=== PATIENT | female | born 1975 | race Caucasian/White ===

== ENCOUNTER 2017-12-23 22:56 | Emergency (ER) | payer OTHER, SELFPAY ==
[2017-12-23 22:56] VITALS: BP 145/89; PULSE 73; RESP 16; TEMP 36.6; O2SAT 100; BMI 26.9
[2017-12-23 23:10] VITALS: BP 138/97; PULSE 66; RESP 14; O2SAT 99
--- NOTE | 2017-12-23 23:14 | RAD_ITS ---
STUDY: X-RAY - RIGHT KNEE REASON FOR EXAM: Female, 42 years old. Knee pain. TECHNIQUE: 4 view(s) of the knee. COMPARISON: None. FINDINGS: Probable 2 cm enchondroma in the distal femoral shaft, otherwise normal visualized distal femur. Normal visualized proximal tibia and fibula. Normal proximal tibiofibular articulation. There is no demonstrated fracture. Normal medial femorotibial compartment. Normal lateral femorotibial compartment. Normal patellofemoral articulation. There is no demonstrated joint effusion. The soft tissue structures are unremarkable. RAD/Knee 4 or More Views IMPRESSION: Normal x-ray examination of the knee. Electronically Signed: Fernando Ponce MD at 23:34 EDT , Service support ,
--- NOTE | 2017-12-23 23:16 | ED.VISSUMM ---
- ER Visit Summary Date of Service: 12/23/17 Chief Complaint: [] Right knee pain History of Present Illness: The patient is a 42 F [] complaining of right knee pain for 2 months with worsening pain in the last several hours. Patient denies injury. Reports mild relief with NSAIDs. is at the bedside. Patient reports mild pain with ambulation. Denies fever or rash. Denies PE risk factors. Denies pain in the calf. Physical Examination: [] Afebrile, vital signs stable. Examination of the right knee reveals negative anterior/posterior drawer sign. Negative pain with varus and valgus stress. There is discomfort with full extension and full flexion and the medial aspect of the knee. There is no significant crepitus, cellulitis, rash, warmth. Neurovascularly intact distally to the affected extremity. Remainder of exam is unremarkable. Test Results: [] 4 view knee x-rays: Negative. Emergency Department Course and Treatment: [] Patient given 1 oxycodone tablet for analgesia. Her will drive her home. X-rays were negative. She was encouraged to follow-up with her primary care physician for outpatient MRI. Treatment Plan: [] Follow-up with PCP. Disposition: [] Discharge, stable. Impression: [] Right knee pain This note was generated with [employer] dictation software. It may contain incorrect words, spelling, and punctuation that were not noted in review of the chart prior to signing ED Disposition - Plan for ED Patient: Chief Complaint: Lower Extremity Injury Referrals: Maryjo Enamorado MD [Primary Care Provider] -
--- NOTE | 2017-12-23 23:53 | ED.DEP ---
ED Disposition - Plan for ED Patient: Disposition: Home or Assisted Living Chief Complaint: Lower Extremity Injury Instructions: ED Knee Pain [facility] Prescriptions: Naproxen 500 mg PO BID PRN PRN #20 tablet.dr PRNorma Reason: Pain Referrals: Maryjo Enamorado MD [Primary Care Provider] -
[2017-12-24] MEDS: oxyCODONE 5 MG Tablet PO (00:02)
--- NOTE | 2017-12-24 00:17 | ED.RN ---
DISCHARGE INSTRUCTIONS GIVEN TO AND REVIEWED WITH PATIENT, PATIENT DENIES QUESTIONS OR CONCERNS AND VOICES UNDERSTANDING OF DISCHARGE INSTRUCTIONS. PT AMBULATES OUT OF ROOM WITHOUT DIFFICULTY.
== END 2017-12-24 00:17 | disposition home or self-care (01) ==
PROVIDERS: Emergency Provider Emergency Medicine; Family Provider Internal Medicine; PCP Internal Medicine
DX: M25.561 Pain in right knee (principal)
CPT/HCPCS: 73564; 99282

== ENCOUNTER 2021-06-21 17:05 | Emergency (ER) | payer OTHER, SELFPAY ==
[2021-06-21 17:06] VITALS: BP 139/87; PULSE 85; RESP 18; TEMP 37.4; O2SAT 97; BMI 28.3
[2021-06-21] MEDS: Lidocaine 1% (20 ml mdv) 20 ML Vial INFILT (19:45)
--- NOTE | 2021-06-21 20:00 | EX.ED.DYSGE1 ---
HPI History of Present Illness Chief Complaint: Laceration Informant: patient Onset/Context/Timing Onset: Today Context: Sudden Onset Location: L hand web between 4 and 5 digits Current Severity: Mild Maximum Severity: Mild Worsened by: nothing Relieved by: nothing Associated Symptoms Associated Symptoms: none Narrative Narrative: Cut on chipped glass, prior to arrival. No foreign bodies. No thinners. No other symptoms. Prior similar symptoms: No Recent Illness/Hospitalization: No PFSH PFSH Allergy/AdvReac Type Severity Reaction Status Date / Time No Known Allergies Allergy Verified 06/21/21 17:08 Surgical History History of History of knee surgery Social History Smoking Status: Never smoker ROS ROS ED Constitutional Constitutional ED: Denies chills or fever(s) Eyes Eyes: Denies change in vision ENT ENT ED: Denies ear pain Cardiovascular Cardiovascular: Denies chest pain Respiratory/Chest Respiratory/Chest: Denies dyspnea Gastrointestinal Gastrointestinal: Denies abdominal pain Genitourinary Genitourinary ED: Denies dysuria Musculoskeletal Musculoskeletal: Denies myalgias Integumentary Reports abscess; Denies Abrasions or rash Neurologic Neurologic: Denies weakness Psychiatric Psychiatric: Denies depression Endocrine Endocrinology: Denies polyuria Allergic/Immunologic Allergic/Immunologic ED: Denies urticaria EXAM Physical Exam Const Vital Signs: 06/21/21 17:06 Temperature 99.3 F H Temperature Source Temporal Pulse Rate 85 Respiratory Rate 18 Blood Pressure 139/87 H Blood Pressure Mean 104 Pulse Ox 97 Oxygen Delivery Method Room Air Positive well nourished and well developed General Appearance ED: well developed HEENT Negative for trauma or tenderness Eyes EOMs intact bilaterally Neck supple Extremity Negative for normal to inspection Extremity Narrative: 1 cm lac L hand between 4 and 5 digits web space Neuro oriented x3 and no sensory deficits noted Sensorium / Orientation: alert Motor Exam: strength 5/5 throughout Psych mental status grossly normal Skin Skin Narrative: 1 cm lac as above MDM MDM MDM Narrative Medical decision making narrative: Tetanus updated. Wound was irrigated copiously with saline and Shur-Clens. Explored. No foreign bodies. No deep structures involved. 1 cm full-thickness laceration was repaired with 2 simple interrupted sutures, 5-0 Ethilon. Patient was given wound care instructions and will be discharged. Follow-up as an outpatient in 10 to 14 days or return right away if worse. Impression #1 left hand laceration 1 cm Discharge Plan Triage Chief Complaint: Laceration ED Provider: David Plasencia Dx/Rx/DC Orders Clinical Impression: Laceration of finger Instructions: ED Laceration, Hand: All Closures Primary Care Provider: Maryjo Enamorado Referrals: Maryjo Enamorado MD [Primary Care Provider] - Activity Restrictions/Additional Instructions: Follow up in 10-14 days for suture removal. Return to ER right away if signs of infection develop. Disposition Disposition: Home, Self Care
[2021-06-21] MEDS: Diphth,Pertuss(Acell),Tet Vac 0.5 ML Vial IM (20:03)
== END 2021-06-21 20:14 | disposition home or self-care (01) ==
PROVIDERS: Emergency Provider Emergency Medicine; PCP Internal Medicine
DX: S61.412A Laceration without foreign body of left hand, initial encounter (principal); Z23 Encounter for immunization; W25.XXXA Contact with sharp glass, initial encounter; Y93.9 Activity, unspecified; Y92.9 Unspecified place or not applicable; Y99.9 Unspecified external cause status
CPT/HCPCS: 12001; 90471; 90715; 99282

== ENCOUNTER 2021-11-22 18:13 | Emergency (ER) | payer OTHER, SELFPAY ==
[2021-11-22 18:13] VITALS: BP 164/97; PULSE 77; RESP 16; TEMP 36.6; O2SAT 100; BMI 28.3
--- NOTE | 2021-11-22 18:54 | EDS_ITS ---
HPI History of Present Illness Chief Complaint: Headache Informant: patient Onset/Context/Timing Onset: Days Context: Gradual Timing: Continuous Quality -Headache: Positive for Sharp; Negative for Similar Prior Headaches Current Severity: Moderate Maximum Severity: Moderate Associated Symptoms/Injury Associated Symptoms: Positive for Nausea; Negative for Fever, Vomiting, Sore Throat, Sinus Pressure, Numbness, Tingling, Preceding Aura, Visual Changes, Blurred Vision, Photophobia and Visual Loss Injury - GENTILE: Negative for Direct Trauma, Fall and Assault Narrative Narrative: 46-year-old female no sniffing past medical history. No history of migraines or frequent headaches. Complaining of posterior occipital headache that began on . Gradual in onset. Said involves the base of her skull in her neck. Denies any falls injury or trauma. No fever. No neurological symptoms. No weakness, numbness or visual changes. No trouble with her balance. States she has never had headache like this with the severe. Says when she takes Tylenol relieves it but never goes away and then comes back and is worse. There is no family history of intracranial bleeds or brain aneurysms. She denies any other symptoms. Prior similar symptoms: No Recent Illness/Hospitalization: No PFSH PFSH Medical History no medical history no medical history Home Medications diazepam [Valium] 5 mg PO BID PRN 5 Days #10 tab 11/22/21 [Rx Last Taken Unknown] Allergy/AdvReac Type Severity Reaction Status Date / Time No Known Allergies Allergy Verified 06/21/21 17:08 Surgical History History of History of knee surgery Social History Smoking Status: Never smoker ROS ROS ED ROS Narrative Headache. Nausea. Review of Systems ROS Unobtainable: Denies due to encephalopathy Constitutional Constitutional ED: Denies fever(s) Eyes Eyes: Denies change in vision ENT ENT ED: Denies ear pain Cardiovascular Cardiovascular: Denies chest pain Respiratory/Chest Respiratory/Chest: Denies dyspnea Gastrointestinal Gastrointestinal: Reports nausea; Denies abdominal pain, diarrhea or vomiting Genitourinary Genitourinary ED: Denies dysuria or hematuria Musculoskeletal Musculoskeletal: Denies myalgias Integumentary Denies rash Neurologic Neurologic: Reports headache(s) Psychiatric Psychiatric: Denies depression Endocrine Endocrinology: Denies polyuria Hematologic/Lymphatic Hematologic/Lymphatic: Denies easy bruising Allergic/Immunologic Allergic/Immunologic ED: Denies urticaria EXAM Physical Exam Narrative Exam Narrative: 46-year-old female no acute distress vital signs stable afebrile. Initial blood pressure elevated 164/97. She does look septic or toxic. H EENT exam pupils round reactive light. No facial droop. Normal speech. No signs of trauma to her face or head. Neck she has posterior occipital tenderness to her neck she has full flexion-extension. No meningismus. No lymphadenopathy. Full rotation. Lungs are clear. Heart regular rhythm no murmur. Abdomen soft nontender. Patient moving all 4 extremities. 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 Dorsi plantar flexion intact. Fingertip to nose [id number] within normal limits normal neurologic exam. NIH 0. Const Vital Signs: 11/22/21 18:13 11/22/21 22:21 Temperature 97.8 F Temperature Source Temporal Pulse Rate 77 82 Respiratory Rate 16 16 Blood Pressure 164/97 H 116/78 Blood Pressure Mean 119 90 Pulse Ox 100 99 Oxygen Delivery Method Room Air Room Air Positive well nourished and well developed; Negative for obese, cachectic, contractures or unkempt General Appearance ED: well developed and NAD; Negative for unkempt, cachectic, contractures, cyanotic, diaphoretic or pallor Nutritional Appearance: Negative for cachectic or obese HEENT Reports normocephalic and moist mucous membranes; Denies dry mucous membranes atraumatic; Negative for trauma, tenderness, temporal artery tenderness or vesicular rash Face and Sinus: Negative for sinus tenderness Mouth ED: No dry mucous membranes Mouth: No dry mucous membranes Eyes PERRL and EOMs intact bilaterally General Eye ED: Negative for pale conjunctiva or scleral icterus Neck no lymphadenopathy, supple, no meningeal signs and no JVD General: Negative for tenderness Resp normal respiratory effort and clear to auscultation bilaterally Auscultation: Negative for rales, rhonchi, wheezes or diminished lung sounds Cardio regular rate, regular rhythm, S1 normal heart sound, S2 normal heart sound and no murmurs GI non-tender and non-distended Auscultation: normoactive bowel sounds Palpation: soft; Negative for firm, tender, guarding or rigid Back/Spine no CVA tenderness General Back: Negative for CVA tenderness or tenderness Extremity normal to inspection and full ROM; Negative for normal capillary refill General Extremety ED: Negative for edema or tenderness General Extremity: Negative for edema Neuro oriented x3, CN's II-XII intact bilaterally and no sensory deficits noted Sensorium / Orientation: awake, alert, oriented to person, oriented to place, oriented to time and orientation impaired; Negative for lethargic or stuporous Coordination / Balance: [id number] test normal and [id number] test normal Speech: speech normal Motor Exam: strength 5/5 throughout Psych mental status grossly normal Appearance: Negative for unkempt Attitude: No agitated Mood & Affect: Negative for depressed or tearful Skin General Skin Exam: Negative for jaundice or pallor Lesions: no lesions Rashes: no rashes MDM MDM MDM Narrative Medical decision making narrative: 46-year-old female with posterior occipital headache. Typically does not get severe headaches. Very well may be a tension headache. CT will be obtained. I will also be treated with IM Toradol and p.o. Valium. Repeat exam patient is doing well at 10:55 PM. Neurologic exam remains normal. We went over CAT scan results. Clinically she is feeling much improved after the p.o. Valium and Toradol. Her neurologic exam remains normal. The muscle spasm in her neck peers be improving. She will be discharged home. Radiography Diagnostic Testing: Clinical Impression(s) from Imaging Studies Brain CT 11/22/21 19:15 IMPRESSION: 1. Age-appropriate CT examination of the head. 2. No intracranial mass, hemorrhage or acute territorial infarct. 3. No radiographically significant disease. Electronically Signed: Stone Thakkar MD at 19:59 EST , Discharge Plan Triage Chief Complaint: Headache ED Provider: Rashaad Espinosa Dx/Rx/DC Orders Clinical Impression: Acute tension headache, Muscle spasms of neck Instructions: ED Headache, Tension, ED Muscle Spasm Prescriptions: New diazepam [Valium] 5 mg tablet 5 mg PO BID PRN (Reason: muscle spasm) 5 Days Qty: 10 RF: 0 Primary Care Provider: Maryjo Enamorado Referrals: Maryjo Enamorado MD [Primary Care Provider] - As Needed Activity Restrictions/Additional Instructions: Hot shower, warm bath and massage. The CAT scan was unremarkable. Most likely this is a tension headache with muscle spasms in your neck. Motrin for pain and inflammation. Tylenol for pain. The Valium for relaxation of muscle spasms in your neck. Do not use alcohol or drive while using the Valium. It may make you sleepy. Disposition Disposition: Home, Self Care
--- NOTE | 2021-11-22 19:15 | CT_ITS ---
INDICATION: posterior headache EXAMINATION: CT BRAIN - CT Head or Brain W/O Contrast Injection TECHNIQUE: Multiple axial images were obtained of the head without intravenous contrast. A radiation dose optimization technique was used for this scan. IV Contrast dosage and agent: None. COMPARISON: No previous for comparison FINDINGS: HEMISPHERES: 1. The cerebral parenchyma, ventricular system, subarachnoid spaces have normal configuration and density. There is a normal gyral pattern. There is normal pedraza/white differentiation. No midline shift.. 2. The hemispheric white matter has normal appearance. 3. No intraparenchymal mass, hemorrhage, or acute territorial infarct. CEREBELLUM - BRAINSTEM: The cerebellum, brainstem, basilar and suprasellar cisterns have normal appearance. No Chiari malformation. PITUITARY: Infundibulum and pituitary have normal configuration. Midline structures appear normal. CSF SPACES: Appropriate for age. No hydrocephalus. Basal cisterns are patent. VESSELS: 1. No significant vascular calcifications in the cavernous carotid vessels. 2. No hyperdense vascular signs noted.. ORBITS AND PARANASAL SINUSES: 1. Normal appearance of the bony orbits. Normal appearance of the globes and retrobulbar soft tissues.. 2. Paranasal sinuses are clear. BONY ELEMENTS: Bony elements of the cranial vault, facial skeleton and skull base have normal appearance. SCALP AND SOFT TISSUES: Normal appearance of the soft tissues of the scalp and the visualized face OTHER: None ASPECTS Score for Acute Strokes: 10 CT/Brain/Head without Contrast IMPRESSION: 1. Age-appropriate CT examination of the head. 2. No intracranial mass, hemorrhage or acute territorial infarct. 3. No radiographically significant disease. Electronically Signed: Stone Thakkar MD at 19:59 EST ,
[2021-11-22] MEDS: diazePAM 5 MG Tablet PO (19:20)
[2021-11-22] MEDS: Ketorolac 60 MG/2 ML Vial IM (19:20)
[2021-11-22 22:21] VITALS: BP 116/78; PULSE 82; RESP 16; O2SAT 99
== END 2021-11-22 23:15 | disposition home or self-care (01) ==
PROVIDERS: Emergency Provider Emergency Medicine; PCP Internal Medicine; Visit Provider Emergency Medicine
DX: G44.209 Tension-type headache, unspecified, not intractable (principal); M62.838 Other muscle spasm
CPT/HCPCS: 70450; 96372; 99283

== ENCOUNTER 2022-01-07 09:22 | Outpatient (CLI) | payer OTHER, SELFPAY ==
[2022-01-07 10:01] LABS: Hematocrit 37.5 % (37-47); Hemoglobin 11.8 g/dL (12.0-15.0); Mean Corp Hgb Conc 31.5 g/dL (32-36); Mean Corpuscular Volume 89.1 fL (81-99); Mean Platelet Vol. 9.9 fl (6.2-12.0); Platelet Count 203 K/mm3 (150-450); RBC Distribution Width CV 13.4 % (11.6-14.6); RBC Distribution Width SD 43.7 fl (35.1-43.9); Red Blood Count 4.21 M/mm3 (4.2-5.4); White Blood Count 4.9 K/mm3 (4.4-11.0)
[2022-01-07 10:19] LABS: Hemoglobin A1c 5.1 % (3.8-5.6)
[2022-01-07 10:21] LABS: Cholesterol 172 mg/dL (200); Follicle Stimulating Hormone 119.2 mIU/mL; High Density Lipoprotein 85 mg/dL; Luteinizing Hormone 51.1 mIU/mL; T4 Free Direct 0.88 ng/dL (0.76-1.46); Thyroid Stim Hormone (TSH) 0.98 uIU/mL (0.358-3.74); Triglycerides 110 mg/dL; Very Low Density Lipoprotein 22 mg/dL (5-40)
[2022-01-14 18:10] LABS: HPV APTIMA, High Risk Negative (Negative)
== END 2022-01-07 23:59 | disposition home or self-care (01) ==
LOC: WOBLAB 09:23
PROVIDERS: PCP Internal Medicine; Visit Provider Obstetrics & Gynecology
DX: N93.9 Abnormal uterine and vaginal bleeding, unspecified (principal)
CPT/HCPCS: 36415; 80061; 82670; 83001; 83002; 83036; 84439; 84443; 85027; 87624; 88175; G0145

== ENCOUNTER 2023-08-10 11:56 | Emergency (ER) | payer OTHER, SELFPAY ==
[2023-08-10 11:57] VITALS: BP 152/115; PULSE 83; RESP 15; TEMP 36.3; O2SAT 100; BMI 27.9
--- NOTE | 2023-08-10 12:03 | EKG12_ITS ---
Test Reason : SOB Blood Pressure : / mmHG Vent. Rate : 075 BPM Atrial Rate : 075 BPM P-R Int : 136 ms QRS Dur : 082 ms QT Int : 370 ms P-R-T Axes : 057 073 059 degrees QTc Int : 413 ms Sinus rhythm with Premature atrial complexes Otherwise normal ECG Confirmed by MAYO MARTÍNEZ, AIDE ([id number]), video news editor ABBE ZACARIAS ([id number]) on 08/16/2023 11:55:30 AM Referred By: Confirmed By:AIDE HUBER MD
--- NOTE | 2023-08-10 13:19 | ED.VIS.DYS ---
HPI History of Present Illness Chief Complaint: Shortness of Breath Narrative Narrative: 48-year-old female who denies significant past medical history presents from urgent care with chest tightness and pressure that she has had for a week. She describes URI type symptoms including cough and shortness of breath with nasal congestion and runny nose. No current fevers or chills. She denies any DVT or PE risk factors. No coronary artery disease risk factors. [facility] Medical History Acute sinusitis, unspecified no medical history Home Medications albuterol sulfate 90 mcg/actuation aerosol inhaler (Ventolin HFA) 1 - 2 puff inhalation Q4H PRN PRN Wheezing #1 ea 08/10/23 [Rx Last Taken Unknown] prednisone 20 mg tablet 40 mg (2 x 20 mg) PO DAILY 7 days #14 tabs 08/10/23 [Rx Last Taken Unknown] Allergy/AdvReac Type Severity Reaction Status Date / Time No Known Allergies Allergy Verified 06/21/21 17:08 Surgical History History of History of knee surgery Social History Smoking Status: Never smoker ROS ROS ED ROS Narrative Constitutional: No fever, no chills. HEENT: No sore throat. No neck pain. No loss of vision. No rhinorrhea. Cardiovascular: Chest tightness chest pain. No palpitations. No pedal edema. Respiratory: Positive cough, positive shortness of breath. Abdominal: No abdominal pain. No nausea. No vomiting. Genitourinary: No dysuria. No hematuria. Musculoskeletal: No myalgias. No arthralgias. Neurologic: No headaches. No dizziness. No lightheadedness. Skin: No rash. No change in color. Psychiatric: No depression. No anxiety. EXAM Physical Exam Narrative Exam Narrative: Afebrile. Vital signs noted. HEENT: Normocephalic. Atraumatic. PERRL, EOMI. Neck soft and supple. No point tenderness or step off. Cardiovascular: Regular rate and rhythm. No murmurs, rubs, or gallops appreciated. Respiratory: No tachypnea. Lungs clear to auscultation bilaterally. No wheezing or stridor. Gastrointestinal: Abdomen soft, nontender, with normoactive bowel sounds. No rebound or guarding. Neurological: Awake. Alert. Nonfocal, nonlateralizing. Skin: No rash. Normal color. No pallor. Musculoskeletal: No pedal edema. Full range of motion extremities. Const Vital Signs: 08/10/23 11:57 08/10/23 12:07 08/10/23 13:37 Temperature 97.4 F L Temperature Source Temporal Pulse Rate 83 67 Respiratory Rate 15 12 Respiratory Effort Normal Non-Labored Respiratory Depth Normal Respiratory Pattern Normal Normal Blood Pressure 152/115 H Blood Pressure Mean 127 Pulse Ox 100 Oxygen Delivery Method Room Air Room Air MDM MDM MDM Narrative Medical decision making narrative: Given the patient's URI type symptoms I feel she probably has more of a bronchitis versus pneumonia. I have low concern for acute coronary syndrome or pulmonary embolism. Her pulse ox is 100% on room air and she denies any DVT or PE risk factors. She is PERC negative. I do not feel she needs laboratory work to rule out PE and I do not feel that she needs a CTA of the chest. Additionally, I do not feel that her chest tightness for a week is cardiac pain. I discussed obtaining a single troponin with her and she agrees that this does not feel like cardiac pain and its more related to her upper respiratory infection which could be more viral. EKG was obtained which demonstrates normal sinus rhythm at 75 bpm with PACs but no acute ST changes. No STEMI. She will be given an albuterol aerosolized treatment and chest x-ray in 2 views will be obtained to rule out pneumonia or pneumothorax. 2 view chest x-ray interpreted by myself independently shows no evidence of pneumonia or pneumothorax. I reviewed the radiology report which confirms my independent interpretation. Upon repeat examination at approximately 1420, she states her breathing has improved slightly with the aerosolized treatment. I do feel she has more of a bronchitis and that antibiotics are not indicated. However, she will be written prescriptions for an albuterol inhaler and a prednisone burst of 40 mg for the next 7 days. I feel she be discharged safely home with follow-up. Return instructions to the emergency department were reviewed. Disposition is discharged home in stable condition. Radiography Diagnostic Testing: Clinical Impression(s) from Imaging Studies Chest X-Ray 08/10/23 13:20 IMPRESSION: Normal x-ray examination of the chest. Electronically Signed: Riley Au MD at 13:45 EST , Discharge Plan Triage Chief Complaint: Shortness of Breath ED Provider: Lloyd Sweeney Dx/Rx/DC Orders Clinical Impression: Dyspnea, Bronchitis Instructions: ED Bronchitis, No Antibiotic (Adult), ED Dyspnea Prescriptions: New albuterol sulfate [Ventolin HFA] 90 mcg/actuation HFA aerosol inhaler 1 - 2 puff inhalation Q4H PRN PRN (Reason: Wheezing) Qty: 1 0RF prednisone 20 mg tablet 40 mg PO DAILY 7 Days Qty: 14 0RF Primary Care Provider: Maryjo Enamorado Referrals: Maryjo Enamorado MD [Primary Care Provider] - 1 Week if not improving Disposition Disposition: Home, Self Care
--- NOTE | 2023-08-10 13:20 | RAD_ITS ---
STUDY: X-RAY CHEST REASON FOR EXAM: Female, 48 years old. Shortness of breath TECHNIQUE: PA and lateral views of the chest. COMPARISON: None. FINDINGS: EKG electrodes are seen. Calcified granulomas in the left lower lobe. The lungs are clear. There is no demonstrated pleural abnormality. Normal size heart. Normal mediastinum and oumou. Normal visualized pulmonary arteries. Normal visualized aortic arch and descending thoracic aorta. Normal visualized thoracic spine. Normal visualized ribs, clavicles, and shoulders. There is no demonstrated abnormality of the visualized soft tissue structures of the upper abdomen. RAD/Chest PA and Lateral IMPRESSION: Normal x-ray examination of the chest. Electronically Signed: Riley Au MD at 13:45 EST ,
[2023-08-10 13:37] VITALS: PULSE 67; RESP 12
[2023-08-10] MEDS: Albuterol 2.5 MG/3 ML VIAL.NEB. INHALATION (13:39)
== END 2023-08-10 14:34 | disposition home or self-care (01) ==
PROVIDERS: Emergency Provider Emergency Medicine; PCP Internal Medicine; Visit Provider Emergency Medicine
DX: J40 Bronchitis, not specified as acute or chronic (principal)
CPT/HCPCS: 71046; 93005; 94640; 99282

== ENCOUNTER 2024-12-14 18:39 | Emergency (ER) | payer BC, SELFPAY ==
[2024-12-14 18:39] VITALS: BP 139/93; PULSE 69; RESP 14; TEMP 36.2; O2SAT 100; BMI 30.3
--- NOTE | 2024-12-14 18:48 | RAD_ITS ---
PROCEDURE: HAND MIN 3 VIEWS 12/14/2024 REASON FOR EXAM: INJURY TECHNIQUE: Three-view right hand none FINDINGS: Soft tissue swelling over the 3rd digit. No fracture or foreign body. No dislocation RAD/Hand Min 3 Views IMPRESSION: No acute osseous abnormality Reading Location: [id number]
--- NOTE | 2024-12-14 18:48 | EX.ED.UPPERE ---
HPI History of Present Illness Chief Complaint: Upper Extremity Injury Detail of Chief Complaint: Right hand injury Informant: patient Narrative Narrative: Patient presents to the emergency department with complaint of injury to her right hand. Patient states that she was walking her dog about an hour ago when he started to run while on a leash. The leash then twisted in her hand she fell forward. She injured her right hand. Dog weighs 77 pounds. She is up-to-date on tetanus. She denies any other injuries. [facility] Medical History Acute sinusitis, unspecified Home Medications ?Medication ?Instructions ?Recorded ?Last Taken ?Type albuterol sulfate 90 mcg/actuation 1 - 2 puff inhalation Q4H PRN PRN 08/10/23 Unknown Rx aerosol inhaler (Ventolin HFA) Wheezing #1 ea Allergy/AdvReac Type Severity Reaction Status Date / Time No Known Allergies Allergy Verified 12/14/24 18:40 Surgical History History of History of knee surgery Social History Smoking Status: Never smoker ROS ROS ED Review of Systems ROS Unobtainable: other Constitutional Constitutional ED: Reports lethargy; Denies chills, fever(s), sweats or weight loss Eyes Eyes: Denies blurry vision, change in vision or diplopia ENT ENT ED: Denies rhinorrhea or sore throat Cardiovascular Cardiovascular: Denies chest pain, orthopnea or racing heartbeat Respiratory/Chest Respiratory/Chest: Denies cough, dyspnea, dyspnea on exertion, orthopnea or sputum Gastrointestinal Gastrointestinal: Denies abdominal pain, diarrhea, nausea or vomiting Genitourinary Genitourinary ED: Denies dysuria, hematuria or urinary frequency Musculoskeletal Musculoskeletal: Reports other Details: Right hand pain/injury ; Denies arthralgias, back pain, myalgias or neck pain Integumentary Denies abscess, Abrasions or rash Neurologic Neurologic: Denies headache(s) or weakness Psychiatric Psychiatric: Denies anxiety, depression or suicidal thoughts Endocrine Endocrinology: Denies polydipsia, polyphagia or polyuria Hematologic/Lymphatic Hematologic/Lymphatic: Denies easy bleeding, easy bruising or lymphadenopathy Allergic/Immunologic Allergic/Immunologic ED: Denies mouth swelling, tongue swelling or urticaria EXAM Physical Exam Const Vital Signs: 12/14/24 18:39 Temperature 97.1 F L Temperature Source Temporal Pulse Rate 69 Respiratory Rate 14 Blood Pressure 139/93 H Blood Pressure Mean 108 Pulse Ox 100 Oxygen Delivery Method Room Air Positive well nourished and well developed General Appearance ED: well developed and NAD HEENT Reports TM's clear and moist mucous membranes normocephalic and atraumatic; Negative for trauma or tenderness Tympanic Membrane ED: Yes TM's clear Eyes PERRL and EOMs intact bilaterally General Eye ED: Negative for pale conjunctiva or scleral icterus Neck no lymphadenopathy, supple and no JVD General: Negative for tenderness Chest Wall inspection of chest normal and palpation of chest normal Chest: Negative for tenderness Resp normal respiratory effort and clear to auscultation bilaterally Effort and Inspection: Negative for respiratory distress or pain with movement Auscultation: Negative for rhonchi, wheezes or diminished lung sounds Cardio regular rate, regular rhythm, S1 normal heart sound, S2 normal heart sound and no murmurs Peripheral Pulses: pulses 2+ throughout GI normal to inspection, nondistended, normoactive bowel sounds, soft to palpation, non-tender, non-distended and no masses Back/Spine no CVA tenderness and no thoracic nor lumbar tenderness Extremity Extremity Narrative: Right hand-patient has tenderness and swelling as well as ecchymosis and bruising to the right middle finger mostly over the middle phalanx. Pain with range of motion in flexion extension but no obvious deformity. Patient also has a superficial skin flap/laceration of the ring finger volar aspect middle phalanx. No active bleeding. No bony tenderness on exam. Neurovascularly intact. No tenderness to the wrist General Extremety ED: Negative for edema General Extremity: Negative for edema Neuro oriented x3, CN's II-XII intact bilaterally, no sensory deficits noted and gait normal Sensorium / Orientation: awake, alert, oriented to person, oriented to place and oriented to time Motor Exam: strength 5/5 throughout and strength abnormal Psych mental status grossly normal Skin no rashes or lesions noted and no wounds MDM MDM MDM Narrative Medical decision making narrative: Patient presents with a right hand injury. X-rays of the right hand obtained interpreted by myself as no evidence of fracture or dislocation. Patient will have a clean dressing applied to her finger and given an aluminum splint to the middle finger. Advised to follow-up with primary care physician within next 5 to 7 days. Radiography Diagnostic Testing: Three-view x-rays of the right hand obtained interpreted by myself as no evidence of fracture or dislocation Discharge Plan Triage Chief Complaint: Upper Extremity Injury ED Provider: Kallie Coleman Dx/Rx/DC Orders Clinical Impression: Finger sprain, Finger laceration Instructions: ED Laceration Superficial No Stitch, ED Finger Sprain Prescriptions: No Action albuterol sulfate [Ventolin HFA] 90 mcg/actuation HFA aerosol inhaler 1 - 2 puff inhalation Q4H PRN PRN (Reason: Wheezing) Qty: 1 0RF Primary Care Provider: Maryjo Enamorado Referrals: Maryjo Enamorado MD [Primary Care Provider] - 5-7 Days Print Language: Senegalese Disposition Disposition: Home, Self Care
[2024-12-14 19:41] VITALS: BP 139/93; PULSE 69; RESP 14; TEMP 36.2; O2SAT 100
== END 2024-12-14 19:41 | disposition home or self-care (01) ==
PROVIDERS: Emergency Provider Emergency Medicine; PCP Internal Medicine; Visit Provider Emergency Medicine
DX: S63.612A Unspecified sprain of right middle finger, initial encounter (principal); S61.219A Laceration without foreign body of unspecified finger without damage to nail, initial encounter; X58.XXXA Exposure to other specified factors, initial encounter; Y93.K1 Activity, walking an animal
CPT/HCPCS: 73130; 99283

== ENCOUNTER 2025-08-19 10:27 | Emergency (ER) | payer OTHER, BC, SELFPAY ==
[2025-08-19 10:27] VITALS: BP 152/95; PULSE 72; RESP 14; TEMP 36.6; O2SAT 98; BMI 31.5
--- NOTE | 2025-08-19 10:42 | EDS_ITS ---
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 Pain worse with certain movements. Denies any pain radiating down the legs. Denies weakness to the extremities. Denies urinary symptoms such as pain or burning or incontinence. PFSH PFSH Medical History Acute sinusitis, unspecified Home Medications Medication Instructions Recorded Last Taken Type albuterol sulfate 90 mcg/actuation 1 - 2 puff inhalati on Q4H PRN PRN 08/10/23 Unknown Rx aerosol inhaler (Ventolin HFA) Wheezing #1 ea cyclobenzaprine 10 mg tablet 10 mg PO TID PRN Muscle S pasm #20 08/19/25 Unknown Rx TABLETS naproxen 500 mg tablet (Naprosyn) 500 mg PO BID PRN pa in #20 tabs 08/19/25 Unknown Rx Allergy/AdvReac Type Severity Reaction Status Date / Time No Known Allergies Allergy Verified 08/19/25 10:30 Surgical History History of History of knee surgery Social History Smoking Status: Never smoker ROS ROS ED Review of Systems ROS Unobtainable: other Constitutional Constitutional ED: Reports lethargy; Denies chills, fever(s), sweats or weight loss Eyes Eyes: Denies blurry vision, change in vision or diplopia ENT ENT ED: Denies rhinorrhea or sore throat Cardiovascular Cardiovascular: Denies chest pain, orthopnea or racing heartbeat Respiratory/Chest Respiratory/Chest: Denies cough, dyspnea, dyspnea on exertion, orthopnea or sputum Gastrointestinal Gastrointestinal: Denies abdominal pain, diarrhea, nausea or vomiting Genitourinary Genitourinary ED: Denies dysuria, hematuria or urinary frequency Musculoskeletal Musculoskeletal: Reports back pain; Denies arthralgias, myalgias or neck pain Integumentary Denies abscess, Abrasions or rash Neurologic Neurologic: Denies headache(s) or weakness Psychiatric Psychiatric: Denies anxiety, depression or suicidal thoughts Endocrine Endocrinology: Denies polydipsia, polyphagia or polyuria Hematologic/Lymphatic Hematologic/Lymphatic: Denies easy bleeding, easy bruising or lymphadenopathy Allergic/Immunologic Allergic/Immunologic ED: Denies mouth swelling, tongue swelling or urticaria EXAM Physical Exam Const Vital Signs: 08/19/25 10:27 Temperature 98 F Temperature Source Temporal Pulse Rate 72 Respiratory Rate 14 Blood Pressure 152/95 H Blood Pressure Mean 114 Pulse Ox 98 Oxygen Delivery Method Room Air Positive well nourished and well developed General Appearance ED: well developed and NAD HEENT Reports TM's clear and moist mucous membranes normocephalic and atraumatic; Negative for trauma or tenderness Tympanic Membrane ED: Yes TM's clear Eyes PERRL and EOMs intact bilaterally General Eye ED: Negative for pale conjunctiva or scleral icterus Neck no lymphadenopathy, supple and no JVD General: Negative for tenderness Chest Wall inspection of chest normal and palpation of chest normal Chest: Negative for tenderness Resp normal respiratory effort and clear to auscultation bilaterally Effort and Inspection: Negative for respiratory distress or pain with movement Auscultation: Negative for rhonchi, wheezes or diminished lung sounds Cardio regular rate, regular rhythm, S1 normal heart sound, S2 normal heart sound and no murmurs Peripheral Pulses: pulses 2+ throughout GI normal to inspection, nondistended, normoactive bowel sounds, soft to palpation, non-tender, non-distended and no masses Back/Spine no CVA tenderness and no thoracic nor lumbar tenderness Back/Spine Narrative: Mild tenderness over left lumbar paraspinal musculature. Negative straight leg raises. Deep tendon reflexes plus 2 out of 4 bilaterally at the patella and Achilles. Patient has normal 5 extension. Patient has normal sensation to light touch Extremity normal to inspection General Extremety ED: Negative for edema General Extremity: Negative for edema Neuro oriented x3, CN's II-XII intact bilaterally, no sensory deficits noted and gait normal Sensorium / Orientation: awake, alert, oriented to person, oriented to place and oriented to time Motor Exam: strength 5/5 throughout and strength abnormal Psych mental status grossly normal Skin no rashes or lesions noted and no wounds MDM MDM MDM Narrative Medical decision making narrative: Patient presents with low back pain after bending over to put somebody shoes on. Clinically looks well. No bony tenderness on exam. No radiculopathic signs or symptoms. Suspect likely muscle strain. I do not feel imaging is indicated. Will write a prescription for naproxen and Flexeril and given work restrictions. Advised to follow-up with [facility] care within next 3 to 5 days Discharge Plan Triage Chief Complaint: Back ED Provider: Kallie Coleman Dx/Rx/DC Orders Clinical Impression: Acute lumbar myofascial strain Instructions: ED Back Sprain/Strain Prescriptions: New cyclobenzaprine 10 mg tablet 10 mg PO TID PRN (Reason: Muscle Spasm) Qty: 20 0RF naproxen [Naprosyn] 500 mg tablet 500 mg PO BID PRN (Reason: pain) Qty: 20 0RF No Action albuterol sulfate [Ventolin HFA] 90 mcg/actuation HFA aerosol inhaler 1 - 2 puff inhalation Q4H PRN PRN (Reason: Wheezing) Qty: 1 0RF Primary Care Provider: Maryjo Enamorado Referrals: [facility] [Group of Physicians, Medical] - 3-5 Days Maryjo Enamorado MD [Primary Care Provider, Internal Medicine] Print Language: Greenlandic Disposition Disposition: Home, Self Care
[2025-08-19 10:59] VITALS: BP 152/95; PULSE 72; RESP 14; TEMP 36.6; O2SAT 98
== END 2025-08-19 11:00 | disposition home or self-care (01) ==
LOC: ED 10:53
PROVIDERS: Emergency Provider Emergency Medicine; PCP Internal Medicine; Visit Provider Emergency Medicine
DX: S39.012A Strain of muscle, fascia and tendon of lower back, initial encounter (principal); X50.1XXA Overexertion from prolonged static or awkward postures, initial encounter; Y93.89 Activity, other specified; Y99.0 Civilian activity done for income or pay
CPT/HCPCS: 99282